=== PATIENT | female | born 1960 | race Caucasian/White ===

== ENCOUNTER 2017-02-05 18:22 | Emergency (ER) | payer OTHER ==
[~2017-02-05] VITALS: Ht 154.9 cm; Wt 123.5 kg
[2017-02-05 19:57] VITALS: Ht 154.9 cm; Wt 123.5 kg
--- NOTE | 2017-02-05 19:57 | EN ---
Date/Time of Note Date/Time of Note DATE: 02/05/17 TIME: 19:56 ER Progress Note I spoke with Dr. Baltazar.what I say Dr. Baltzaar will be seeing this patient. Dr. Baltazar aware of patient's condition including all vital signs. MARCO ANTONIO APARICIO PA-C Feb 05, 2017 19:57
[2017-02-05] MEDS ORDERED: CEFEPIME 2GM/50 ML (PMX) 50 ML IVPB STA (20:15)
[2017-02-05] MEDS ORDERED: SODIUM CHLORIDE 0.9% 1L BAG IV* STA (20:15)
[2017-02-05 20:47] LABS: ADD SCAN DIFF NO
[2017-02-05 20:52] LABS: ABNORMAL IP MESSAGE 1; BASOPHILS % 0.6 % (0.0-2.0); HEMATOCRIT 38.7 % (37.0-47.0); HEMOGLOBIN 12.5 g/dl (12.0-16.0); LYMPHOCYTES # 0.5 10^3/ul (0.8-2.9); MEAN CORPUSCULAR HEMOGLOBIN 30.3 pg (29.0-33.0); MEAN CORPUSCULAR HGB CONC 32.3 g/dl (32.0-37.0); MEAN CORPUSCULAR VOLUME 93.7 fl (82.0-101.0); MEAN PLATELET VOLUME 9.2 fl (7.4-10.4); MONOCYTE # 0.3 10^3/ul (0.3-0.9); MONOCYTES % 6.6 % (0.0-11.0); NEUTROPHILS % 82.6 % (39.0-77.0); PLATELET COUNT 143 10^3/UL (140-415); RED BLOOD COUNT 4.13 10^6/ul (4.20-5.40); RED CELL DISTRIBUTION WIDTH 12.8 % (11.5-14.5); WHITE BLOOD COUNT 4.9 10^3/ul (4.8-10.8)
[2017-02-05 21:00] LABS: ADD UMIC YES; URINE BILIRUBIN (Dip) NEGATIVE (NEGATIVE); URINE BLOOD (Dip) 3+ (NEGATIVE); URINE COLOR LT. YELLOW (YELLOW); URINE GLUCOSE (Dip) NEGATIVE (NEGATIVE); URINE KETONES (Dip) NEGATIVE (NEGATIVE); URINE LEUKOCYTE ESTERASE (Dip) 2+ (NEGATIVE); URINE NITRITE (Dip) POSITIVE (NEGATIVE); URINE TOTAL PROTEIN (Dip) 2+ (NEGATIVE); URINE UROBILINOGEN (Dip) 0.2 E.U./dL (0.1-1.0)
[2017-02-05 21:05] LABS: INR 1.01; PROTIME 13.3 Sec (12.2-14.2)
[2017-02-05 21:06] LABS: PARTIAL THROMBOPLASTIN TIME 30.4 Sec (25.0-35.0)
[2017-02-05 21:08] LABS: BACTERIA,URINE FEW; SQUAMOUS EPITHELIAL CELL,UR FEW
[2017-02-05 21:10] LABS: ALANINE AMINOTRANSFERASE 55 IU/L (13-69); ALBUMIN 4.3 g/dl (3.3-4.9); ALBUMIN/GLOBULIN RATIO 1.53; ALKALINE PHOSPHATASE 87 IU/L (42-121); ANION GAP 12 (8-16); ASPARTATE AMINO TRANSFERASE 53 IU/L (15-46); BILIRUBIN,INDIRECT 0.3 mg/dl (0-1.1); BILIRUBIN,TOTAL 0.3 mg/dl (0.2-1.3); BLOOD UREA NITROGEN 11 mg/dl (7-20); CALCIUM 9.2 mg/dl (8.4-10.2); CARBON DIOXIDE 27 mmol/L (21-31); CHLORIDE 103 mmol/L (97-110); CREATININE 0.68 mg/dl (0.44-1.00); GLUCOSE 189 mg/dl (70-220); POTASSIUM 3.7 mmol/L (3.5-5.1); SODIUM 138 mmol/L (135-144); TOTAL PROTEIN 7.1 g/dl (6.1-8.1)
[2017-02-05 21:24] LABS: TROPONIN-I < 0.012 ng/ml (0.00-0.12)
[2017-02-05] MEDS ORDERED: KETOROLAC 30 MG INJ IV STA (21:45)
--- NOTE | 2017-02-05 22:13 | RADRPT ---
PROCEDURE: XR Chest. CLINICAL INDICATION: Cough. Possible sepsis TECHNIQUE: Portable AP erect view of the chest was obtained. COMPARISON: None. FINDINGS: The cardiomediastinal silhouette is within normal limits. The lungs are clear. There is no evidenc e for pleural effusion, pneumothorax or pulmonary vascular congestion. Thoracic spondylosis is pres ent. There is no evidence of acute osseous abnormality RPTAT:HJJR IMPRESSION: No evidence for acute intrathoracic pathology. Physician Aida Date Time Electronically viewed and signed by Physician Aida on 02/05/2017 22:12 JR/
[2017-02-05] MEDS ORDERED: PHEN-537 PO (23:12)
[2017-02-05] MEDS ORDERED: ONDA4TAB14 PO (23:12)
[2017-02-05] MEDS ORDERED: NITR-58 PO (23:12)
[2017-02-05] MEDS ORDERED: CIPR500T4 PO (23:12)
[2017-02-05] MEDS ORDERED: NAPR-688 PO (23:12)
--- NOTE | 2017-02-05 23:26 | ERD ---
ER Documentation Chief Complaint Date/Time DATE: 02/05/17 TIME: 23:16 Chief Complaint headache, body aches, high bp, ran out of bp meds, and strips for bs check HPI 56-year-old female presents for body aches, headache fever, burning on urination going on for 2 days. She denies chest pain or shortness of breath. Has had some nausea that is now resolved. ROS All systems reviewed and are negative except as per history of present illness. Medications Home Meds Active Scripts Ondansetron (Ondansetron Odt) 4 Mg Tab.rapdis, 4 MG PO Q6H Y for NAUSEA AND/OR VOMITING, #10 TAB Prov:SYLVIA ELIAS DO 02/05/17 Naproxen* (Naproxen*) 500 Mg Tablet, 500 MG PO BID, #14 TAB Prov:SYLVIA ELIAS DO 02/05/17 Phenazopyridine Hcl* (Pyridium*) 100 Mg Tab, 100 MG PO TID Y for URINARY PAIN, # 8 TAB Prov:SYLVIA ELIAS DO 02/05/17 Nitrofurantoin Monohyd Macrocr* (Macrobid*) 100 Mg Capsr, 100 MG PO BID for 5 Days, CAP Prov:SYLVIA ELIAS DO 02/05/17 Ciprofloxacin Hcl* (Ciprofloxacin Hcl*) 500 Mg Tablet, 500 MG PO BID for 5 Days , TAB Prov:SYLVIA ELIAS DO 02/05/17 Allergies Allergies: Coded Allergies: No Known Allergy (Unverified , 02/05/17) PMhx/Soc History of Surgery: Yes (CA removal, carpel tunnel bilateral, C-sections) Anesthesia Reaction: No Hx Cardiac Disorders: Yes (HTN) Hx Miscellaneous Medical Probl: Yes (Hyperlipidemia, DM, cholesterol, GERD) Hx Alcohol Use: No Hx Substance Use: No Hx Tobacco Use: No Smoking Status: Never smoker Physical Exam Vitals Vital Signs Date Time Temp Pulse Resp B/P Pulse Ox O2 Delivery O2 Flow Rate FiO2 02/05/17 20:24 103.8 106 154/73 96 Room Air 02/05/17 18:46 103.5 100 24 130/103 93 Physical Exam Const: [] No distress, appears uncomfortable. Head: Atraumatic Eyes: Normal Conjunctiva ENT: Normal External Ears, Nose and Mouth. Neck: Full range of motion..~ No meningismus. Resp: Clear to auscultation bilaterally Cardio: Regular tachycardia, no murmurs Abd: Soft, mild suprapubic tenderness, non distended. Normal bowel sounds Skin: No petechiae or rashes, extra warm to the touch Back: No midline or flank tenderness Ext: No cyanosis, or edema Neur: Awake and alert and oriented 3, no focal deficits Psych: Normal Mood and Affect Result Diagram: 02/05/17202902/05/17 2030 Results 24 hrs Laboratory Tests Test 02/05/17 20:30 White Blood Count 4.910^3/ul Red Blood Count 4.1310^6/ul Hemoglobin 12.5g/dl Hematocrit 38.7% Mean Corpuscular Volume 93.7fl Mean Corpuscular Hemoglobin 30.3pg Mean Corpuscular Hemoglobin Concent 32.3g/dl Red Cell Distribution Width 12.8% Platelet Count 16686^3/UL Mean Platelet Volume 9.2fl Neutrophils % 82.6% Lymphocytes % 10.0% Monocytes % 6.6% Eosinophils % 0.0% Basophils % 0.6% Nucleated Red Blood Cells % 0.0/100WBC Neutrophils # 4.010^3/ul Lymphocytes # 0.510^3/ul Monocytes # 0.310^3/ul Eosinophils # 0.010^3/ul Basophils # 0.010^3/ul Nucleated Red Blood Cells # 0.010^3/ul Prothrombin Time 13.3Sec Prothrombin Time Ratio 1.0 INR International Normalized Ratio 1.01 Activated Partial Thromboplast Time 30.4Sec Urine Color LT. YELLOW Urine Clarity SLIGHTLY CLOUDY Urine pH 6.0 Urine Specific [place] 1.020 Urine Ketones NEGATIVE Urine Nitrite POSITIVE Urine Bilirubin NEGATIVE Urine Urobilinogen 0.2 E.U./dL Urine Leukocyte Esterase 2+ Urine Microscopic RBC 5-10/HPF Urine Microscopic WBC >200/HPF Urine Squamous Epithelial Cells FEW Urine Bacteria FEW Urine Hemoglobin 3+ Urine Glucose NEGATIVE% Urine Total Protein 2+ Sodium Level 138mmol/L Potassium Level 3.7mmol/L Chloride Level 103mmol/L Carbon Dioxide Level 27mmol/L Anion Gap 12 Blood Urea Nitrogen 11mg/dl Creatinine 0.68mg/dl Glucose Level 189mg/dl Lactic Acid Level 1.7mmol/L Calcium Level 9.2mg/dl Total Bilirubin 0.3mg/dl Direct Bilirubin 0.00mg/dl Indirect Bilirubin 0.3mg/dl Aspartate Amino Transf (AST/SGOT) 53IU/L Alanine Aminotransferase (ALT/SGPT) 55IU/L Alkaline Phosphatase 87IU/L Troponin I < 0.012ng/ml Total Protein 7.1g/dl Albumin 4.3g/dl Globulin 2.80g/dl Albumin/Globulin Ratio 1.53 Current Medications Medications (Trade) Dose Ordered Sig/Quinn Route PRN Reason Start Time Stop Time Status Last Admin Dose Admin Sodium Chloride 3830 ml 3,830 ml BOLUS OVER 2 HOURS STAT IV* 02/05/17 20:15 02/05/17 20:17 DC 02/05/17 20:46 Cefepime HCl (Maxipime 2gm/50 ml (Pmx)) 50 ml @ 100 mls/hr ONCE STAT IVPB 02/05/17 20:15 02/05/17 20:44 DC 02/05/17 21:03 Ketorolac Tromethamine (Toradol) 30 mg ONCE STAT IV 02/05/17 21:45 02/05/17 21:47 DC 02/05/17 21:52 Procedures/MDM UTI with sepsis. Patient tachycardic and febrile with highly positive urinalysis for infection. She was given a gram of cefepime and 30 cc/kg of IV fluid. She was given Toradol for her pain with her kidney function numbers came back normal. Patient's condition also improved with fluid resuscitation. She did have to urinate many times in the emergency room. She states that she does not want to stay in the hospital at all. The patient appears to have mild sepsis with no white blood cell count or lactic acidosis believe outpatient treatment is feasible. May discharge her with Pyridium as well as Cipro and Macrobid. Also given prescription for Zofran ODT in case she develops nausea again. Naproxen for pain. States that she was out of medications which she had ordered them and she will be receiving a 3 month supply tomorrow morning. Primary care follow-up in the next 2 days as well as return precautions to the ER for any increasing symptoms . EKG interpretation: Sinus tachycardia rate of 106, left axis deviation, no ST or T-wave changes concerning for acute ischemia, normal intervals nurse monitoring interpretation: Initial sinus tachycardia followed by normal sinus rhythm after fluid resuscitation Chest x-ray interpretation: I see no acute process. I see no widened mediastinum, no pneumothorax, no pulmonary edema, no infiltrates, no fractures Critical care time 34 minutes: This includes treatment of sepsis secondary to UTI, very careful fluid administration in obese patient, early antibiotic therapy, stabilization of unstable vital signs, multiple visits the patient's bedside to reassess status, chart reviewed, discussion with patient. This does not include any billable procedures Departure Diagnosis: Primary Impression: Sepsis secondary to UTI Condition: Stable Patient Instructions: Bladder Infection, Female (Adult) Referrals: [facility] YOU HAVE RECEIVED A MEDICAL SCREENING EXAM AND THE RESULTS INDICATE THAT YOU DO NOT HAVE A CONDITION THAT REQUIRES URGENT TREATMENT IN THE EMERGENCY DEPARTMENT. FURTHER EVALUATION AND TREATMENT OF YOUR CONDITION CAN WAIT UNTIL YOU ARE SEEN IN YOUR DOCTORS OFFICE WITHIN THE NEXT 1-2 DAYS. IT IS YOUR RESPONSIBILITY TO MAKE AN APPOINTMENT FOR FOLOW-UP CARE. IF YOU HAVE A PRIMARY DOCTOR --you should call your primary doctor and schedule an appointment IF YOU DO NOT HAVE A PRIMARY DOCTOR YOU CAN CALL OUR PHYSICIAN REFERRAL HOTLINE AT IF YOU CAN NOT AFFORD TO SEE A PHYSICIAN YOU CAN CHOSE FROM THE FOLLOWING [facility] [id number] [facility] [address] [facility] [facility] [address] [facility]. [facility] [address] [address]. [facility] [address] [facility]. [facility]. [address] Additional Instructions: Call your primary care doctor TOMORROW for an appointment during the next 2-3 days.See the doctor sooner or return here if your condition worsens before your appointment time. SYLVIA ELIAS DO Feb 05, 2017 23:26
[2017-02-05] MEDS ORDERED: ACETAMINOPHEN 325 MG TAB PO ONE (23:30)
[2017-02-05 23:42] VITALS: BP 145/87; PULSE 106; RESP 20; TEMP 98.6
== END 2017-02-05 23:44 | disposition home or self-care (01) ==
LOC: FTE 18:22
DX: A41.9 Sepsis, unspecified organism (principal); N39.0 Urinary tract infection, site not specified; E11.9 Type 2 diabetes mellitus without complications; I10 Essential (primary) hypertension; R11.0 Nausea
CPT/HCPCS: 36415; 71010; 80053; 81001; 83605; 84484; 85025; 85610; 85730; 87040; 87086; 93005; 96374; 96375; 99291; J1885; J7030